=== PATIENT | female | born 1945 | race Asian ===

== ENCOUNTER → 2016-11-15 | Outpatient (CLI) | payer OTHER | LOC: FIMAGING 14:39 | DX: Z12.31 Encounter for screening mammogram for malignant neoplasm of breast (principal) | CPT/HCPCS: G0202 ==

== ENCOUNTER → 2017-02-23 | Outpatient (CLI) | payer OTHER | LOC: FIMAGING 12:14 | PROVIDERS: ATTEND Internal Medicine | DX: Z13.820 Encounter for screening for osteoporosis (principal); M85.80 Other specified disorders of bone density and structure, unspecified site; Z78.0 Asymptomatic menopausal state ==

== ENCOUNTER 2017-10-04 20:21 | Inpatient (IN) | payer OTHER ==
--- NOTE | 2017-10-04 21:55 | EDPHY ---
H & P Stated Complaint: Fell and hurt left hip Time Seen by Provider: 10/04/17 20:30 HPI/ROS: Chief complaint: Left hip injury History of present illness: This is a 71-year-old female who presents to the emergency department for evaluation of a left hip injury. Earlier today she tripped and fell onto her left hip. Since then she has had increasing pain. She cannot ambulate because of the pain. She denies associated signs or symptoms including no open wounds. No abnormal coolness or paresthesias in the leg. No other trauma reported. Review of systems: A 10 point review of systems was obtained and other than described above was negative - Personal History Current Tetanus/Diphtheria Vaccine: Yes Current Tetanus Diphtheria and Acellular Pertussis (TDAP): Yes - Medical/Surgical History Hx Asthma: No Hx Chronic Respiratory Disease: No Hx Diabetes: No Hx Cardiac Disease: No Hx Renal Disease: No Hx Cirrhosis: No Hx Alcoholism: No Hx HIV/AIDS: No Hx Splenectomy or Spleen Trauma: No Other PMH: left hand surgery - Social History Smoking Status: Never smoked - Physical Exam Exam: General Appearance: Alert, no distress. Eyes: Pupils equal and round no pallor or injection. ENT, Mouth: Mucous membranes moist. Respiratory: There are no retractions, lungs are clear to auscultation. Cardiovascular: Regular rate and rhythm. DP and PT pulses 2+. Gastrointestinal: Abdomen is soft and non tender, no masses, bowel sounds normal. Neurological: Alert and oriented x4. Strength and sensation intact and symmetrical. Skin: Warm and dry, no rashes. Musculoskeletal: Left leg is externally rotated. She does not want move the hip secondary to pain. Psychiatric: Patient is oriented X 3, there is no agitation. Constitutional: Initial Vital Signs Temperature (C) 36.6 C 10/04/17 20:26 Heart Rate 79 10/04/17 20:26 Respiratory Rate 16 10/04/17 20:26 Blood Pressure 134/76 H 10/04/17 20:26 O2 Sat (%) 93 10/04/17 20:26 O2 Delivery Mode Room Air Allergies/Adverse Reactions: iodine [Iodine] Allergy (Verified 10/04/17 20:29) Home Medications: Medication Instructions Recorded Lipitor 10/04/17 Melatonin 10/04/17 Medical Decision Making - Diagnostics Imaging Results: Imaging Impressions Hip X-Ray 10/04/17 20:56 Impression: Left subcapital hip fracture. Imaging: I viewed and interpreted images myself ED Course/Re-evaluation: Patient is discussed with my secondary supervising physician Dr. Marin Borges. Patient presents for a left hip injury. X-ray confirms a fracture. Leg is neurovascularly intact. By history and physical exam no evidence of other trauma. Patient will be admitted to the hospitalist service under the care of Dr. Hernandez. Orthopedics, Dr. Lundy will consult on this patient. The plan has been discussed with the patient who voiced understanding and agreement with it. Differential Diagnosis: Included but not limited to contusion, sprain or strain, bony fracture, joint dislocation Departure - Departure Disposition: [facility] Inpatient Acute Clinical Impression: Hip fracture Qualifiers: Encounter type: initial encounter Fracture type: closed Laterality: left Qualified Code(s): S72.002A - Fracture of unspecified part of neck of left femur , initial encounter for closed fracture Condition: Good
[2017-10-04] MEDS ORDERED: HYDROCODONE/APAP 5/325 TAB PO PRN (22:40)
[2017-10-04] MEDS ORDERED: ONDANSETRON 4 MG/2 ML VIAL IVP PRN (22:40)
[2017-10-04] MEDS ORDERED: HYDROmorphONE/DILAUDID 2 MG/ML INJ IVP PRN (22:40)
[2017-10-04] MEDS ORDERED: NS 1,000 ML IV SCH (22:45)
[2017-10-04 23:04] LABS: PLATELET COUNT 227 10^3/uL (150-400)
[2017-10-04 23:14] LABS: INR 1.02 (0.83-1.16); PROTIME(PATIENT) 13.6 SEC (12.0-15.0)
[2017-10-04] MEDS ORDERED: WARFARIN SODIUM 5 MG TAB PO ONE (23:20)
--- NOTE | 2017-10-04 23:28 | SOAPPROG ---
SOAP Progress Note Assessment/Plan: Assessment: Left hip subcapital fracture Plan: Patient and xrays were reviewed by Dr. Lundy and myself levon. A formal consult note was dictated. It was discussed with the patient and family that she will need surgery to fix her left hip fracture Surgery planned for tomorrow afternoon 10/05/17 after 3:00pm-4:00pm. Surgery will likely be a left hip hemiarthroplasty vs. total hip replacement All the risks, benefits and complications discussed with the patient and family NWB LLE, Bed rest Ice to left hip Pain medicine as needed. F/U on PT/INR results Patient will be started in Coumadin 5mg PO tonight for DVT prophylaxis prior to her operation tomorrow afternoon. Patient will be further seen and evaluated by Dr. Lundy in the morning. Subjective: 71 year old female who fell tonight landing on her left hip. She is unable to bear weight. Xrays done in the ER that show a left hip subcapital fracture. Patient states her hip is not to painful right now while laying in bed. Patient denies LOC or any other orthopedic injuries. Objective: Vital Signs Temp Pulse Resp BP Pulse Ox 36.6 C 79 16 134/76 H 93 10/04/17 20:26 10/04/17 20:26 10/04/17 20:26 10/04/17 20:26 10/04/17 20:26 Laboratory Results 10/04/17 22:45 10/04/17 22:45 PT 13.6 SEC (12.0-15.0) 10/04/17 22:45 INR 1.02 (0.83-1.16) 10/04/17 22:45 Physical exam of the LLE: leg is externally rotated. Pain with any movement. Patient is able to move all 5 toes. Normal sensation to light touch in the LLE. Distal pulse present in the LLE. Skin is warm, dry and intact, no rashes or abrasions noted. ICD10 Worksheet Patient Problems: Problems Problem Status Onset Hip fracture Acute
--- NOTE | 2017-10-04 23:43 | GCON ---
[f rep st] CONSULTATION ORTHOPEDIC CONSULTATION. CHIEF COMPLAINT: Left hip injury/pain. HISTORY OF PRESENT ILLNESS: The patient is a 71-year-old female, who tripped over her flower bin bonnie garcia and fell, landing on her left hip. She states initially the pain was not too bad, however, has been getting worse, which made her come to the ER. She can no longer ambulate because of the pain. She denies any loss of consciousness or any other orthopedic injuries. X-rays were taken in the ER t onight that shows a left subcapital hip fracture. No other trauma noted. We were consulted for an o rthopedic evaluation. PAST MEDICAL HISTORY: Hyperlipidemia. PAST SURGICAL HISTORY: Left hand operation and right finger operation. CURRENT MEDICATIONS: Lipitor and melatonin. ALLERGIES: Iodine. SOCIAL HISTORY: Patient is a non cigarette smoker. Does not drink alcohol or use recreational drugs . REVIEW OF SYSTEMS: A 10-point review was done. Negative for any other complaints, concerns, or hist ory except for what was noted in the HPI. FAMILY HISTORY: Noncontributory. PHYSICAL EXAMINATION: GENERAL: Pleasant, NAD. HEENT: NC/AT, EOMI, PERRLA. EARS/NARES: Patent wi thout discharge. Oropharynx is clear. NECK: Nontender to palpation, full range of motion. MUSCULO SKELETAL: Left Lower Extremity: The leg is externally rotated. She does have discomfort with any m ovement of the hip. She is able to move all 5 toes. Normal sensation to light touch in the left low er extremity. Distal pulses present left lower extremity. SKIN: Warm, dry, and intact without any rashes noted. PSYCHIATRIC: Alert and oriented x3. Appropriate mood and affect. RADIOGRAPHS: X-rays reviewed from the [facility] ER, and show a left hip subcapital fr acture. IMPRESSION: Left hip subcapital fracture. PLAN: Patient was seen, examined, and discussed with Dr. Lundy, who also reviewed the x-rays tonight . At this point, I had a long discussion with the patient and her family members. I did discuss isabelle t treatment would involve surgery. The patient does understand this. I did go through the possibili ty of having to do a left total hip arthroplasty versus a hemiarthroplasty. The risks, benefits, com plications were explained to the patient. The patient will be made nonweightbearing left lower extre mity until her operation. Ice the left hip, pain medicine as needed. We will get lab work for a PT/ INR, and she will be started on Coumadin 5 mg tonight for DVT prophylaxis prior to the total hip or h emiarthroplasty. Coumadin will be used postoperatively, per Dr. Lundy. The patient's surgery will b e done tomorrow afternoon, October 05, likely after 3 or 4 p.m. I will make her n.p.o. starting at 7 a .m. on October 05. All questions were answered to the patient and her family's satisfaction. Please call Orthopedics with any questions or concerns. /[id number]/MODL
[2017-10-05] MEDS ORDERED: MELATONIN 3 MG TAB PO SCH (01:00)
[2017-10-05] MEDS ORDERED: POLYETHYLENE GLYCOL 3350 17 GM PKT PO PRN (01:00)
[2017-10-05] MEDS ORDERED: LACTULOSE 20 GM/30 ML UDCUP PO PRN (01:00)
[2017-10-05] MEDS ORDERED: BISACODYL 10 MG SUPP PR PRN (01:00)
[2017-10-05] MEDS ORDERED: MAGNESIUM HYDROXIDE 30 ML UDCUP PO PRN (01:00)
--- NOTE | 2017-10-05 01:34 | PDGENHP ---
History and Physical - Chief Complaint Left hip pain, fall - History of Present Illness Source-patient provides history and appears reliable. Her EMR was reviewed and case discussed with ED provider. 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 Patient reports that she had a mechanical fall approximately 7:00 p.m. Where she tripped on P version over a flower pot. Patient subsequently had a significant amount of left hip pain but was able to ambulate with severe pain. She reports some on nausea initially after her fall but this is resolved. She denies any lightheadedness, shortness of breath, presyncope, palpitations prior to her fall. Patient currently denies any numbness or tingling in her left leg. She does report increased pain with any movement. Patient without a previous diagnosis of osteoporosis. History Information - Allergies/Home Medication List Allergies/Adverse Reactions: iodine [Iodine] Allergy (Verified 10/04/17 20:29) Home Medications: Lipitor 10/04/17 [Last Taken Unknown] Melatonin 10/04/17 [Last Taken Unknown] I have personally reviewed and updated: family history, medical history, social history, surgical history - Past Medical History Additional medical history: HLD, diet-controlled pre-diabetes - Surgical History Additional surgical history: Left thumb surgery, tonsillectomy adenoidectomy, left breast I&D in her 20s for possible mastitis - Family History Additional family history: Father with history of chest cancer, mother-CVA, brother-mi/CAD - Social History Smoking Status: Never smoked Alcohol Use: None Drug Use: None Additional social history: Patient is lives with her . 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 Core-full Review of Systems Review of Systems: ROS: 10pt was reviewed & negative except for what was stated in HPI & below Muscolosketal: Reports: joint pain (Left hip) Skin: Reports: rash (Dry skin) Physical Exam Physical Exam: Selected Entries 10/04/17 20:26 Blood Pressure Automatic Method Heart Rate 79 Respiratory 16 Rate O2 Sat (%) 93 Temperature (C) 36.6 C Blood Pressure 134/76 H Mean Arterial 95 Pressure (MAP) O2 Delivery Room Air Mode Temperature Oral Source Temp Pulse Resp BP Pulse Ox 36.9 C 78 18 130/77 H 97 10/05/17 00:02 10/05/17 00:02 10/05/17 00:02 10/05/17 00:02 10/05/17 00:02 Constitutional: no apparent distress, appears nourished, uncomfortable (With movement), other ( at bedside) Eyes: PERRL, anicteric sclera, EOMI (Grossly intact), No scleral injection Ears, Nose, Mouth, Throat: moist mucous membranes, No poor dentition Cardiovascular: regular rate and rhythym, no murmur, rub, or gallop, pulses symmetric bilaterally, No edema Peripheral Pulses: 2+: dorsalis-pedis (R), dorsalis-pedis (L) Respiratory: no respiratory distress, no rales or rhonchi, clear to auscultation , No reduced air movement Gastrointestinal: normoactive bowel sounds, soft, non-tender abdomen, no palpable masses, No distension Genitourinary: no bladder tenderness, No osullivan in urethra Skin: warm, normal color, no rashes or abrasions, No mottled Musculoskeletal: pain with ROM, other (Left leg exam limited secondary to fracture and pain, is slightly elevated cradle by pillows but straighten. Remainder of extremities strength intact) Neurologic: AAOx3, sensation intact bilaterally, CN II-XII Intact (Grossly nonfocal), No numbness, No facial droop Psychiatric: interacting appropriately, not encephalopathic, thought process linear, anxious (Patient with multiple questions but is appropriately anxious regarding her anticipated surgery.), No poor insight, No poor judgement, No poor memory Lab Data & Imaging Review 10/04/17 22:45 10/04/17 22:45 WBC 10.79 10^3/uL (3.80-9.50) H 10/04/17 22:45 RBC 4.63 10^6/uL (4.18-5.33) 10/04/17 22:45 Hgb 15.0 g/dL (12.6-16.3) 10/04/17 22:45 Hct 42.8 % (38.0-47.0) 10/04/17 22:45 MCV 92.4 fL (81.5-99.8) 10/04/17 22:45 MCH 32.4 pg (27.9-34.1) 10/04/17 22:45 MCHC 35.0 g/dL (32.4-36.7) 10/04/17 22:45 RDW 12.3 % (11.5-15.2) 10/04/17 22:45 Plt Count 227 10^3/uL (150-400) 10/04/17 22:45 MPV 9.1 fL (8.7-11.7) 10/04/17 22:45 Neut % (Auto) 87.1 % (39.3-74.2) H 10/04/17 22:45 Lymph % (Auto) 8.7 % (15.0-45.0) L 10/04/17 22:45 [place] % (Auto) 3.2 % (4.5-13.0) L 10/04/17 22:45 Eos % (Auto) 0.3 % (0.6-7.6) L 10/04/17 22:45 Baso % (Auto) 0.1 % (0.3-1.7) L 10/04/17 22:45 Nucleat RBC Rel Count 0.0 % (0.0-0.2) 10/04/17 22:45 Absolute Neuts (auto) 9.40 10^3/uL (1.70-6.50) H 10/04/17 22:45 Absolute Lymphs (auto) 0.94 10^3/uL (1.00-3.00) L 10/04/17 22:45 Absolute Monos (auto) 0.35 10^3/uL (0.30-0.80) 10/04/17 22:45 Absolute Eos (auto) 0.03 10^3/uL (0.03-0.40) 10/04/17 22:45 Absolute Basos (auto) 0.01 10^3/uL (0.02-0.10) L 10/04/17 22:45 Absolute Nucleated RBC 0.00 10^3/uL (0-0.01) 10/04/17 22:45 Immature Gran % 0.6 % (0.0-1.1) 10/04/17 22:45 Immature Gran # 0.06 10^3/uL (0.00-0.10) 03/22/18 22:45 PT 13.6 SEC (12.0-15.0) 10/04/17 22:45 INR 1.02 (0.83-1.16) 10/04/17 22:45 APTT 33.4 SEC (23.0-38.0) 10/04/17 22:45 Sodium 139 mEq/L (135-145) 10/04/17 22:45 Potassium 4.1 mEq/L (3.5-5.2) 10/04/17 22:45 Chloride 103 mEq/L (97-110) 10/04/17 22:45 Carbon Dioxide 25 mEq/l (22-31) 10/04/17 22:45 Anion Gap 11 mEq/L (8-16) 10/04/17 22:45 BUN 18 mg/dL (7-23) 10/04/17 22:45 Creatinine 0.6 mg/dL (0.6-1.0) 10/04/17 22:45 Estimated GFR > 60 10/04/17 22:45 Glucose 126 mg/dL (70-100) H 10/04/17 22:45 Calcium 9.0 mg/dL (8.5-10.4) 10/04/17 22:45 Imaging Review: Left Hip Technique: AP pelvis and frog-leg left hip. Clinical Indications: Pain, fall tonight Findings: There is an acute left subcapital hip fracture. There is mild displacement. The pelvic ring is intact. The SI joints pubic symphysis and right hip are normally aligned. There is a calcified uterine fibroid in the left hemipelvis. There are left hip injection granulomas. Impression: Left subcapital hip fracture. Visualized and Interpreted imaging results: Yes Assessment & Plan Assessment: Left hip fracture - subcapital fracture. Orthopedics service has evaluated the patient in the emergency department and will plan for patient to go to the OR tomorrow afternoon approximately 3:00 p.m.. Anticipate possible hemiarthroplasty versus total on hip arthroplasty. Patient will be on bed rest. P.r.n. Osullivan if patient is unable to utilize a bedpan due to severe pain. Patient will be NPO after 7:00 a.m. As per Orthopedic request. acute pain 2/2 trauma - Tylenol, Dexter, Dilaudid will be available p.r.n.. Patient has requested to try to avoid narcotics as she reports she is sensitive but no history of allergies. HLD - resume statin postoperatively holding at this time. Patient reassures okay to miss a dose Insomnia-patient is requesting that she take her melatonin as well as herbal supplementation. Advised that we can continue with melatonin but will hold her herbal supplements preoperatively due to unknown contents and potential increased risk for bleeding preoperatively. Pre diabetes-patient blood sugar minimally elevated in this is nonfasting lab. Will plan to monitor with a.m. Labs consider addition of Accu-Cheks and low- dose sliding scale if her blood sugars start to trend up in setting of her acute fracture otherwise at this time will hold off. Constipation-bowel regimen has been ordered. Moderate amount of stool is noted on patient's pelvic x-ray but patient without any complaints of discomfort at this time. FEN - IV fluids overnight while patient will be NPO. Electrolytes will be monitored and replaced if needed. PPX-SCDs to the right leg if tolerated otherwise holding anticoagulation preoperatively. Cor status-full Disposition-patient has been admitted to inpatient status in setting of acute left hip fracture. Anticipate greater than 2 midnight stay.
[2017-10-05] MEDS ORDERED: MELATONIN 2 MG PO SCH (01:43)
[2017-10-05] MEDS ORDERED: WARFARIN SODIUM 5 MG TAB PO ONE ×2 (02:45→20:30)
[2017-10-05] MEDS: MELATONIN 3 MG TAB PO SCH ×2 (03:07→20:42)
[2017-10-05] MEDS: ACETAMINOPHEN 325 MG TAB PO PRN (03:11)
--- NOTE | 2017-10-05 09:29 | PDMN ---
Medical Necessity Medical necessity: est los>2mn for acute L hip fx r/t mechanical fall w/acute pain with ambulation; surgery scheduled for 10/05/17, possible hemiarthroplasty vs total arthroplasty (IP surgeries per [facility]); comorbid HLD, pre diabetes; per order and H&P 10/04/17
[2017-10-05] MEDS: SENNOSIDES/DOCUSATE SODIUM TAB PO SCH ×2 (09:44→20:43)
--- NOTE | 2017-10-05 10:07 | ASMTCMCOM ---
CM Note CM Note Notes: Reviewed patient's chart. Patient admitted s/p fall with Left Hip Fx. Patient lives at home with . She is scheduled for surgery this afternoon. Will await therapy evals post surgery. Current D/C Plan: To Be Determined at this time. Case Management will follow-up post surgery. Date Signed: 10/05/2017 10:05 AM Electronically Signed By:Kyung Arellano RN
[2017-10-05] MEDS ORDERED: TRANEXAMIC ACID 1,000 MG in NS (SYRINGE) 50 ML IV ONE (13:13)
[2017-10-05] MEDS ORDERED: ceFAZolin 2 GM/SWFI 2 GM/20 ML SYR IVP ONE (13:13)
[2017-10-05] MEDS ORDERED: ceFAZolin 1 GM/5 ML SYR ONE (15:11)
[2017-10-05] MEDS ORDERED: ceFAZolin 2 GM/SWFI 20 ML SYR IVP ONE (15:31)
[2017-10-05] MEDS ORDERED: LR 1,000 ML IV ONE (15:44)
--- NOTE | 2017-10-05 16:12 | PDANEPAE ---
ANE History of Present Illness LEFT ANANDA ANE Past Medical History - Cardiovascular History Hx Hypertension: No Hx Arrhythmias: No Hx Chest Pain: No Hx Coronary Artery / Peripheral Vascular Disease: No Hx CHF / Valvular Disease: No Hx Palpitations: No Cardiovascular History Comment: negative treadmill test about 2 years ago - Pulmonary History Hx COPD: No Hx Asthma/Reactive Airway Disease: No Hx Oxygen in Use at Home: No Hx Sleep Apnea: No Sleep Apnea Screening Result - Last Documented: Negative Pulmonary History Comment: Bronchitis, worst in September - Endocrine History Hx Diabetes: No Hypothyroid: No Hyperthyroid: No Obesity: no Endocrine History Comment: Pre-DM - Renal History Hx Renal Disorders: No - Liver History Hx Hepatic Disorders: No - Neurological & Psychiatric Hx Hx Neurological and Psychiatric Disorders: No - Cancer History Hx Cancer: No - GI History GERD: no Hx Gastrointestinal Disorders: No - Chronic Pain History Chronic Pain: Yes (pain in R ankle post strain) - Surgical History Prior Surgeries: tonsillectomy, breast surgery ANE Review of Systems Review of Systems: - Exercise capacity METS (RN): 4 METS ANE Patient History - Allergies Allergies/Adverse Reactions: iodine [Iodine] Allergy (Verified 10/04/17 20:29) - Home Medications Home Medications: Atorvastatin Calcium [Lipitor 40 mg (*)] 40 mg PO HS 10/04/17 [Last Taken ] Melatonin/Pyridoxine HCl (B6) [Melatonin 1 mg Tablet] 2 tab PO HS 10/04/17 [ Last Taken 10/03/17] Aspirin [Aspirin 81mg (*)] 81 mg PO HS 10/05/17 [Last Taken 10/03/17] Herbals/Supplements -Info Only 1 ea PO DAILY 10/05/17 [Last Taken Unknown] - NPO status NPO Since - Liquids (Date): 10/05/17 NPO Since - Liquids (Time): 07:00 NPO Since - Solids (Date): 10/05/17 NPO Since - Solids (Time): 00:01 - Anes Hx Anes Hx: no prior problems - Smoking Hx Smoking Status: Never smoked Marijuana use: No - Alcohol Use Alcohol Use: Other (rare) - Family Anes Hx Family Anes Hx: neg - N/A ANE Labs/Vital Signs - Labs Result Diagrams: 10/04/17 22:45 10/04/17 22:45 - Vital Signs Blood Pressure: 112/92 Heart Rate: 77 Respiratory Rate: 16 O2 Sat (%): 92 Height: 152.4 cm Weight: 62.1 kg ANE Physical Exam - Airway Neck exam: decreased ROM (c/o neck pain with R lateral rotation) Mallampati Score: Class 1 Mouth exam: normal dental/mouth exam (Upper front crowns) - Pulmonary Pulmonary: clear to auscultation - Cardiovascular Cardiovascular: regular rate and rhythym - ASA Status ASA Status: III ANE Anesthesia Plan Anesthesia Plan: general endotracheal anesthesia (SAB vs GA procedures/benefits discussed with patient and her ; questions answered. Pt. prefers GA.)
[2017-10-05] MEDS ORDERED: PROPOFOL 200 MG/20 ML VIAL ONE ×3 (16:27→18:20)
[2017-10-05] MEDS ORDERED: ROCURONIUM 50 MG/5 ML VIAL ONE (16:27)
[2017-10-05] MEDS ORDERED: fentaNYL 100 MCG/2 ML INJ ONE ×2 (16:27→19:34)
[2017-10-05] MEDS ORDERED: DEXAMETHASONE 4 MG/ML VIAL ONE (16:27)
[2017-10-05] MEDS ORDERED: BUPIVACAINE 0.5% 30 ML SDV ONE (16:34)
[2017-10-05] MEDS ORDERED: ONDANSETRON 4 MG/2 ML VIAL ONE (18:43)
[2017-10-05] MEDS ORDERED: GLYCOPYRROLATE 0.2 MG/1 ML VIAL ONE (18:48)
[2017-10-05] MEDS ORDERED: NEOSTIGMINE METHYLSULFATE 3 MG/3 ML SYR ONE (18:48)
[2017-10-05] MEDS ORDERED: HYDROmorphONE/DILAUDID 2 MG/ML INJ IVP PRN (19:08)
[2017-10-05] MEDS ORDERED: fentaNYL 100 MCG/2 ML INJ IVP PRN (19:08)
[2017-10-05] MEDS ORDERED: NALOXONE HCL 0.4 MG/ML INJ IVP PRN (19:08)
[2017-10-05] MEDS ORDERED: METOCLOPRAMIDE 10 MG/2 ML VIAL IVP PRN (19:16)
[2017-10-05] MEDS ORDERED: oxyCODONE IR 5 MG TAB PO PRN (19:16)
[2017-10-05] MEDS ORDERED: diphenhydrAMINE 25 MG CAP PO PRN (19:16)
[2017-10-05] MEDS ORDERED: DIPHENOXYLATE/ATROPINE LOMOTIL 1 TAB PO PRN (19:16)
[2017-10-05] MEDS ORDERED: PROMETHAZINE HCL 25 MG/ML INJ IVP PRN (19:16)
[2017-10-05] MEDS ORDERED: CYCLOBENZAPRINE 10 MG TAB PO PRN (19:16)
--- NOTE | 2017-10-05 19:43 | POSTANESTH ---
Post Anesthetic Evaluation Cardiovascular Status: Normal, Stable Respiratory Status: Normal, Stable Level of Consciousness/Mental Status: Can Participate in Eval Pain Control: Adequate, Prn Tx Ordered Nausea/Vomiting Control: Adequate, Prn Tx Ordered Complications Possibly Related to Anesthesia: None Noted
--- NOTE | 2017-10-05 20:12 | GOP ---
[f rep st] OPERATIVE REPORT DATE OF OPERATION: 10/04/2017 SURGEON: Trey Lundy MD TECHNICAL PUBLICATIONS MANAGER: Carmen Menchaca PA-C. ANESTHESIA: General. PREOPERATIVE DIAGNOSIS: Left Garden 4 femoral neck fracture. POSTOPERATIVE DIAGNOSIS: Left Garden 4 femoral neck fracture. PROCEDURE PERFORMED: Left total hip arthroplasty for a left Garden 4 femoral neck fracture. FINDINGS: DESCRIPTION OF PROCEDURE: Patient was taken to the operating room, administered general anesthesia, placed in the right lateral decubitus position, had her left hip and lower extremity prepped and drap ed in normal sterile fashion. Posterolateral incision was made through dermal and subcutaneous tissu es. Sharp dissection performed down to the level of the IT band. Small bleeders were cauterized. I T band was split distally, extended proximally over the greater trochanter into the gluteal fascia. Retractors were put in position. The external rotators were brought under tension. The piriformis w as isolated. This was taken down along with the posterior hip capsule using a cautery. The femoral head fracture segment was noted. There was significant neck comminution. The comminuted fragments w ere removed. The neck cut was then freshened up with an oscillating saw. The head was then levered out using a tenaculum clamp and a Dial elevator. The acetabulum was inspected. A small amount of we ar was noted. The labral tissue was excised. The tissue was excised. We subsequently be susan reaming with a size 44 and extended up to a size 47. We elected to go with a 48 mm titanium reji spherical cluster hole shell. Two screws were placed superiorly, 135 mm and 130 mm. Both screws had excellent purchase. We then placed an MDM liner in position and impacted that. This was 36 mm C in ner diameter. The femoral neck was then brought into position. Box osteotome was used to remove bon e from the greater trochanter. The starting tapered reamer was placed manually down into the canal. Reaming started with a size 5 and extended up to a size 8. Broaching began with a size 5 and extend ed up to a size 8. An 8 secure fit seemed to fit her appropriately. The trial head and liner were p ut on the broach. The hip was reduced with the trials in place. Intraoperative films were taken. W e elected to increase our offset. The 127 degree trial offset was positioned. We then reapplied the trial heads and relocated. This appeared to fit her more appropriately. Leg lengths were felt to b e equal. Thorough lavage performed with normal saline. The trial implants were removed. The real f emoral stem was impacted into position. The real 22 mm low friction ion L-fit head was impacted into position. The real MDM X3 insert for the MDM liner was impacted into position. Implants utilized w ere titanium hemispherical cluster hole shell, 135 mm length by 6.5 screw, 130 mm length by 6.5 screw , an MDM liner, inner diameter 36 mm C, MDM X3 insert for MDM liner, 22 mm outer diameter 36, size 36 C, C taper L-fit low friction ion treatment head size 22 mm +0 offset, a secure fit max 127 degree n tariq angle hip stem size 8, 30 mm neck length C taper. All implants from [employer]. The incision was t horoughly lavaged. The external rotators were then repaired back through drill holes in the greater trochanter with a #1 Ethibond suture. The piriformis was repaired through drill holes in the greater trochanter with #1 piriform suture. The iliotibial band and gluteal fascia were reapproximated with a #1 Vicryl suture in an interrupted [id number] fashion. The subcutaneous tissues were closed with 2-0 Vicryl suture followed by closure of the dermis with jose angel. A sterile compression dressin g applied followed by abduction pillow, pneumatic compression stockings, and AUDREY hose. The patient t olerated procedure well, was transferred back to recovery in stable condition. No operative complica tions. COMPLICATIONS: None. /[id number]/MODL
[2017-10-05] MEDS ORDERED: oxyCODONE IR 5 MG TAB ONE (20:13)
[2017-10-05] MEDS: FAMOTIDINE 20 MG TAB PO SCH (20:43)
--- NOTE | 2017-10-05 21:32 | POSTOPPROG ---
Post Op Note Date of Operation: 10/05/17 Surgeon: Trey Lundy Perfume And Toilet Water Maker: Jennifer Kaur PA-C Anesthesia: GET(General Endotracheal) Pre-op Diagnosis: Left Hip Subcapital fracture Post-op Diagnosis: Left Hip Subcapital fracture Indication: displaced hip fracture Procedure: Left total hip arthroplasty Findings: see dictated op note Inf/Abcess present in the surg proc area at time of surgery?: No EBL: 100-500 Complications: none Specimen(s): none
[2017-10-05] MEDS ORDERED: ceFAZolin 2 GM/DEXTROSE 100 ML IV SCH (22:00)
[2017-10-06] MEDS: ceFAZolin 2 GM/SWFI 2 GM/20 ML SYR IVP SCH ×2 (00:59→08:08)
[2017-10-06] MEDS: ACETAMINOPHEN 325 MG TAB PO PRN ×2 (02:14→17:42)
[2017-10-06 05:26] LABS: INR 1.59 (0.83-1.16); PROTIME(PATIENT) 19.1 SEC (12.0-15.0)
[2017-10-06] MEDS: FAMOTIDINE 20 MG TAB PO SCH ×2 (08:08→21:23)
[2017-10-06] MEDS: SENNOSIDES/DOCUSATE SODIUM TAB PO SCH ×2 (08:08→21:22)
--- NOTE | 2017-10-06 09:10 | HOSPPROG ---
Hospitalist Progress Note Assessment/Plan: Patient is a 71-year-old female with a past medical history of hyperlipidemia, pre diabetes who presented the emergency room with complaints of left hip pain and difficulty walking. She had a mechanical fall and developed left hip pain but was able to ambulate. Today is my 1st encounter with the patient. Chart reviewed. * left subcapital hip fracture -s/p left total hip arthroplasty * acute pain due to this *anemia in the post op setting -will follow * gait instability -PT and OT working w her * hyperlipidemia * insomnia -Melatonin * pre diabetes * constipation -add bowel protocol * calcified uterine fibroid in the left hemipelvis noted on imaging *dvt prophylaxis: LMWH *Plan: reviewed w Ms Mejía she will likely need a SNF for rehab. I believe some info gets confused when talking w her. If we can use a Belgian cylinder machine operator pulp drier when possible this will help her understand. 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 Subjective: Mrs Mejía has no pain while in bed. Says her hip hurts when getting up. Objective: Vital Signs Temp Pulse Resp BP Pulse Ox 36.7 C 78 16 100/65 94 10/06/17 07:27 10/06/17 07:27 10/06/17 07:27 10/06/17 07:27 10/06/17 07:27 Laboratory Results 10/06/17 04:18 10/04/17 22:45 10/05/17 10/06/17 10/07/17 05:59 05:59 05:59 Intake Total 3080 Output Total 400 1245 Balance -400 1835 PT 19.1 SEC (12.0-15.0) H 10/06/17 04:18 INR 1.59 (0.83-1.16) H 10/06/17 04:18 - Physical Exam Constitutional: uncomfortable Eyes: PERRL Ears, Nose, Mouth, Throat: hearing normal Cardiovascular: regular rate and rhythym Respiratory: no respiratory distress Skin: warm, other (left hip with swelling, has a brigitte bulb drain w minimal serous bloody drainage.) Musculoskeletal: generalized weakness Neurologic: AAOx3 Psychiatric: interacting appropriately ICD10 Worksheet Patient Problems: Problems Problem Status Onset Hip fracture Acute
--- NOTE | 2017-10-06 11:49 | SOAPPROG ---
SOAP Progress Note Assessment/Plan: Assessment: Left hip subcapital fracture: POD#1 from a left total hip arthroplasty Plan: Drain will remain in place until tomorrow Daily dressing changes WBAT LLE with the use of a walker PT/OT TEDs/SCD's Ice to left hip Pain medicine as needed Warfarin for DVT prophylaxis prior to her operation tomorrow afternoon Continue to monitor H&H: currently 9.8/28.9 Ortho Stable Subjective: Patient is one day status post left total hip arthroplasty. She states that she has pain when moving but no pain while she is laying in bed. Objective: Vital Signs Temp Pulse Resp BP Pulse Ox 36.9 C 91 16 132/91 H 95 10/06/17 11:44 10/06/17 11:44 10/06/17 11:44 10/06/17 11:44 10/06/17 11:44 Laboratory Results 10/06/17 04:18 10/04/17 22:45 10/05/17 10/06/17 10/07/17 05:59 05:59 05:59 Intake Total 3080 Output Total 400 1245 100 Balance -400 1835 -100 PT 19.1 SEC (12.0-15.0) H 10/06/17 04:18 INR 1.59 (0.83-1.16) H 10/06/17 04:18 Physical exam of the left hip: dressing was saturated so it was changed today. New dry dressing applied. Incision is healing well, no active drainage or erythema. Ballinger are in place. Pt is able to move all 5 toes. Normal sensation to light touch in the LLE. Distal pulse present in the LLE. Drain will remain in place. ICD10 Worksheet Patient Problems: Problems Problem Status Onset Hip fracture Acute
--- NOTE | 2017-10-06 14:23 | ASMTCMCOM ---
CM Note CM Note Notes: PT/OT recommending SNF. Spoke with pt who is requesting [facility] as she lives near there and it will be the easiest for her to visit her. Referral and PASRR sent. Date Signed: 10/06/2017 02:23 PM Electronically Signed By:JOHANNA Goldman
[2017-10-06] MEDS ORDERED: WARFARIN SODIUM 2.5 MG TAB PO SCH (16:00)
[2017-10-06] MEDS: ATORVASTATIN CALCIUM 40 MG TAB PO SCH (21:00)
[2017-10-06] MEDS: MELATONIN 3 MG TAB PO SCH (21:23)
[2017-10-07 05:00] LABS: INR 2.17 (0.83-1.16); PROTIME(PATIENT) 24.2 SEC (12.0-15.0)
[2017-10-07] MEDS: ACETAMINOPHEN 325 MG TAB PO PRN ×2 (11:43→20:45)
[2017-10-07] MEDS: SENNOSIDES/DOCUSATE SODIUM TAB PO SCH ×2 (11:43→20:25)
[2017-10-07] MEDS: FAMOTIDINE 20 MG TAB PO SCH ×2 (11:44→21:01)
--- NOTE | 2017-10-07 11:50 | SOAPPROG ---
SOAP Progress Note Assessment/Plan: Assessment: Left hip subcapital fracture: POD#2 from a left total hip arthroplasty Plan: Drain: was pulled today Daily dressing changes WBAT LLE with the use of a walker PT/OT TEDs/SCD's Ice to left hip Pain medicine as needed Warfarin for DVT prophylaxis daily Continue to monitor H&H: currently dropped to 8.6/25.3 Ortho Stable Subjective: Patient is POD#2 from a left total hip arthroplasty. Objective: Vital Signs Temp Pulse Resp BP Pulse Ox 36.9 C 80 16 104/60 95 10/07/17 08:00 10/07/17 08:00 10/07/17 08:00 10/07/17 08:00 10/07/17 08:00 Microbiology 10/05/17 09:45 MRSA Culture - Final Nose - Swab Laboratory Results 10/07/17 04:18 10/04/17 22:45 10/06/17 10/07/17 10/08/17 05:59 05:59 05:59 Intake Total 3080 1280 Output Total 1245 920 Balance 1835 360 PT 24.2 SEC (12.0-15.0) H 10/07/17 04:18 INR 2.17 (0.83-1.16) H 10/07/17 04:18 Physical exam of the left hip: dressing c/d/I. Normal sensation to light touch in the LLE. Distal pulse present in the LLE. NVI. ICD10 Worksheet Patient Problems: Problems Problem Status Onset Hip fracture Acute
--- NOTE | 2017-10-07 12:20 | HOSPPROG ---
Hospitalist Progress Note Assessment/Plan: Patient is a 71-year-old female with a past medical history of hyperlipidemia, pre diabetes who presented the emergency room with complaints of left hip pain and difficulty walking. She had a mechanical fall and developed left hip pain but was able to ambulate. * left subcapital hip fracture -s/p left total hip arthroplasty,POD #2 -drain in place till tomorrow -WBAT w use of walker * acute pain due to this -needs to be premedicated prior to getting oob *anemia in the post op setting -will follow -hgb 8.6 * gait instability -PT and OT working w her * hyperlipidemia * insomnia -Melatonin * pre diabetes * constipation -add bowel protocol * calcified uterine fibroid in the left hemipelvis noted on imaging *dvt prophylaxis: on Coumadin, INR is 2.17 *Plan: recheck labs in a.m., patient is agreeable to go to SNF Subjective: Mrs Mejía says her hip is very painful w getting oob. She is concerned about lab numbers. Objective: Vital Signs Temp Pulse Resp BP Pulse Ox 36.9 C 80 16 104/60 95 10/07/17 08:00 10/07/17 08:00 10/07/17 08:00 10/07/17 08:00 10/07/17 08:00 Microbiology 10/05/17 09:45 MRSA Culture - Final Nose - Swab Laboratory Results 10/07/17 04:18 10/04/17 22:45 10/06/17 10/07/17 10/08/17 05:59 05:59 05:59 Intake Total 3080 1280 Output Total 1245 920 Balance 1835 360 PT 24.2 SEC (12.0-15.0) H 10/07/17 04:18 INR 2.17 (0.83-1.16) H 10/07/17 04:18 - Physical Exam Constitutional: uncomfortable, No not in pain Eyes: PERRL Ears, Nose, Mouth, Throat: hearing normal Cardiovascular: regular rate and rhythym Skin: warm, other (left hip with drain, has swelling) Musculoskeletal: generalized weakness Neurologic: AAOx3 Psychiatric: interacting appropriately ICD10 Worksheet Patient Problems: Problems Problem Status Onset Hip fracture Acute
[2017-10-07] MEDS ORDERED: WARFARIN SODIUM 2 MG TAB PO SCH (16:00)
[2017-10-07] MEDS: ATORVASTATIN CALCIUM 40 MG TAB PO SCH (20:25)
[2017-10-07] MEDS: MELATONIN 3 MG TAB PO SCH (20:26)
[2017-10-08 05:15] LABS: INR 1.89 (0.83-1.16); PROTIME(PATIENT) 21.8 SEC (12.0-15.0)
--- NOTE | 2017-10-08 08:38 | HOSPPROG ---
Hospitalist Progress Note Assessment/Plan: Patient is a 71-year-old female with a past medical history of hyperlipidemia, pre diabetes who presented the emergency room with complaints of left hip pain and difficulty walking. She had a mechanical fall and developed left hip pain but was able to ambulate. * left subcapital hip fracture -s/p left total hip arthroplasty,POD #3 -drain out -WBAT w use of walker * acute pain due to this -needs to be premedicated prior to getting oob *anemia in the post op setting -will follow -hgb 8.3 * gait instability -PT and OT working w her * hyperlipidemia * insomnia -Melatonin * pre diabetes * constipation -add bowel protocol * calcified uterine fibroid in the left hemipelvis noted on imaging *dvt prophylaxis: on Coumadin, INR is 1.89 *Plan: call into orthopedics to see how long for dvt prophylaxis; will dc patient to [facility]. Subjective: Mrs Mejía says she didn't get enough sleep. Her hip pain is well managed while in bed. Objective: Vital Signs Temp Pulse Resp BP Pulse Ox 37.2 C 74 14 114/68 93 10/08/17 00:00 10/08/17 00:00 10/08/17 00:00 10/08/17 00:00 10/08/17 00:00 Microbiology 10/05/17 09:45 MRSA Culture - Final Nose - Swab Laboratory Results 10/08/17 04:12 10/04/17 22:45 10/07/17 10/08/17 10/09/17 05:59 05:59 05:59 Intake Total 1280 250 Output Total 920 155 Balance 360 95 PT 21.8 SEC (12.0-15.0) H 10/08/17 04:20 INR 1.89 (0.83-1.16) H 10/08/17 04:20 - Physical Exam Constitutional: no apparent distress, appears nourished Eyes: PERRL Ears, Nose, Mouth, Throat: hearing normal Cardiovascular: regular rate and rhythym Respiratory: no respiratory distress Skin: warm, other ( left hip with swelling, dressing dry) Musculoskeletal: generalized weakness Neurologic: AAOx3 Psychiatric: interacting appropriately ICD10 Worksheet Patient Problems: Problems Problem Status Onset Hip fracture Acute chronic disease mgtm/transitonal care Acute
[2017-10-08 08:40] VITALS: RESP 16
--- NOTE | 2017-10-08 08:50 | SOAPPROG ---
SOAP Progress Note Assessment/Plan: Assessment: Left hip subcapital fracture: POD#3 from a left total hip arthroplasty Plan: Daily dressing changes WBAT LLE with the use of a walker PT/OT TEDs/SCD's Ice to left hip Pain medicine as needed Warfarin for DVT prophylaxis daily Continue to monitor H&H Ortho Stable 10/08/17 08:58 Subjective: Patient is 3 days status post left total hip arthroplasty. She states she has pain when she is up & walking. She is not using much medicine for pain. Objective: Vital Signs Temp Pulse Resp BP Pulse Ox 37.4 C 77 16 100/64 87 L 10/08/17 08:00 10/08/17 08:00 10/08/17 08:00 10/08/17 08:00 10/08/17 08:00 Microbiology 10/05/17 09:45 MRSA Culture - Final Nose - Swab Laboratory Results 10/08/17 04:12 10/04/17 22:45 10/07/17 10/08/17 10/09/17 05:59 05:59 05:59 Intake Total 1280 250 Output Total 920 155 Balance 360 95 PT 21.8 SEC (12.0-15.0) H 10/08/17 04:20 INR 1.89 (0.83-1.16) H 10/08/17 04:20 Physical exam of the left hip: dressing changed today. Incision is healing well , no erythema no active drainage. Robbin are in place. Normal sensation to light touch in the LLE. Distal pulse present in the LLE. ICD10 Worksheet Patient Problems: Problems Problem Status Onset Hip fracture Acute chronic disease mg/transitonal care Acute
[2017-10-08] MEDS: SENNOSIDES/DOCUSATE SODIUM TAB PO SCH (09:30)
[2017-10-08] MEDS: ACETAMINOPHEN 325 MG TAB PO PRN (09:30)
[2017-10-08] MEDS: FAMOTIDINE 20 MG TAB PO SCH (09:30)
--- NOTE | 2017-10-08 10:42 | PDIAF ---
- Diagnosis Diagnosis: left subcapital hip fx s/p left total hip athroplasty, anemia Code Status: Full Code - Medication Management Discharge Medications: Medications to Continue on Transfer Atorvastatin Calcium [Lipitor 40 mg (*)] 40 mg PO HS 10/04/17 [Last Taken ] Acetaminophen [Tylenol 325mg (*)] 650 mg PO Q4HRS PRN tab 10/08/17 [Last Taken Unknown] Hydrocodone/APAP 5/325 [[place] 5/325 (*)] 1 - 2 tab PO Q4HRS PRN tab 10/08/17 [ Last Taken Unknown] Melatonin [Melatonin 3 MG (*)] 2 mg PO HS tab 10/08/17 [Last Taken Unknown] Polyethylene Glycol 3350 [Miralax 17 gm (*)] 17 gm PO DAILY PRN pkt 10/08/17 [ Last Taken Unknown] Sennosides/Docusate Sodium [Senokot-S] 1 - 2 tab PO BID tab 10/08/17 [Last Taken Unknown] Warfarin Sodium 2 mg PO DAILY #27 tablet 10/08/17 [Last Taken Unknown] oxyCODONE IR [Oxycodone Ir (*)] 5 - 10 mg PO Q3HRS PRN tab 10/08/17 [Last Taken Unknown] Discharge Medications: Refer to the Discharge Home Medication list for PRN reason. - Orders Services needed: Physical Therapy, Occupational Therapy Sutures/Robbin Site: left hip/ Dr Lundy to remove in 10 days, make an appt Activity/Weight Bearing Restrictions: Weight bearing as tolerated left lower extremity with a walker. AUDREY hose should be worn for 2 weeks post op. DVT prophylaxis: Warfarin daily for 4 weeks post op. PT/INR blood draws twice a week. Every Sunday and . Physical therapy left hip: Range of motion and strengthening. Posterior hip precautions: must use the abduction pillow while in bed for 6 weeks post op. Pain medicine as needed. Ice to left hip 20 minutes 3-4 times per day. Follow up with Dr. Lundy in 10-14 days post op. Please call our office to schedule the appointment. Please call the office with any questions or concerns. Additional: aspirin 81 mg has been placed on hold while the patient is on Warfarin (coumadin) - Labs/Radiology HCT/HGB Date: 10/09/17 (q 3 days to assure stability) PT/INR Date: 10/09/17 (daily till stable, goal INR of 2-2.5) - Follow Up Care Current Providers and Referrals: Trace Back MD [Primary Care Provider] - As per Instructions Trey Lundy MD [Medical Doctor] - (Follow up with Dr. Lundy in 10-14 days post op. Please call our office with any questions or concerns.)
--- NOTE | 2017-10-08 11:18 | GDS ---
[f rep st] DISCHARGE SUMMARY DISCHARGE DIAGNOSES: 1. Left subcapital hip fracture, status post left total hip arthroplasty. 2. Acute pain due to this. 3. Anemia. 4. Gait instability. 5. Hyperlipidemia. 6. Insomnia. 7. Prediabetes. 8. Constipation. 9. Calcified uterine fibroid. This is on left hemipelvis on imaging. REPAIR SERVICER: Dr. Trey Lundy. HISTORY: Briefly, the patient is a 71-year-old with a past medical history of hyperlipidemia, predia betes, who presented to the emergency room with complaints of left hip pain, difficulty walking. She had a mechanical fall and developed acute left-sided hip pain, was able to ambulate. She was admitt ed. She had surgery. The plan is for her to go to a correction facility for rehabilitation and strengthening. HOSPITAL COURSE: 1. Left subcapital hip fracture. She is status post left total hip arthroplasty postop day #3. The drain is out. Instructions on her weightbearing have been placed on her inner agency form. 2. Acute pain. She should get premedicated prior to getting out of bed. 3. Anemia. Her hemoglobin is 8.3. It has slightly trended down. Will have this monitored at the [facility]. 4. Gait instability. PT and OT. 5. Hyperlipidemia, on statin. 6. Insomnia, on melatonin. 7. Prediabetes. Further follow up with her PCP. 8. Constipation. Add a bowel protocol. 9. Calcified uterine fibroid. This is not bothering her. It was an incidental finding. PENDING LABS: Specimen from her hip joint is pending. DISCHARGE CONDITION: Stable. Blood pressure is 100/64, heart rate is 77, respiratory rate is 16, O2 sats on 2 L are 87%, temperature is 37.4 Celsius. MEDICATIONS AT DISCHARGE: Please see the EMR. DISCHARGE INSTRUCTIONS: 1. To make an appointment to follow up with Dr. Lundy for staple removal. 2. To stay on the Coumadin for the next 4 weeks. 3. Instructions for physical therapy have been written out. 4. Ice to her left hip as needed. Greater than 30 minutes discharging and coordinating the patient's care. /[id number]/MODL
[2017-10-08 14:03] VITALS: BP 126/90; PULSE 111; TEMP 98.2; O2SAT 92
--- NOTE | 2017-10-08 15:55 | ASDISCHSUM ---
Discharge Information Plan Status:SNF Medically Cleared to Leave: Discharge Date:10/08/2017 03:06 PM CM D/C Disposition:Long-Term Facility ADT D/C Disposition:Long-Term Facility Projected Discharge Date:10/07/2017 11:00 AM Transportation at D/C:Wheelchair Van Discharge Delay Reason: Follow-Up Date:10/07/2017 11:00 AM Discharge Slot: Final Diagnosis: Placement Information Referral Type:*Group Home/SNF Referral ID:[id number] Provider Name:[facility] Address 1:[address] Phone Number: Address 2: Fax Number: [facility]:[place] Selection Factors: State:[place] Patient Contact Information Contact Name:PATIENCE Relationship: Address:[address] City:[place] Alternate Phone: State/Zip Code:[place] [address] Email: Financial Information Financial Class:Medicare Primary Plan Desc:MEDICARE INPATIENT Primary Plan Number:[id number] Secondary Plan Desc:[facility] INDEMNITY Secondary Plan Number:[id number] Assessment Information [facility] CM Progress Note CM Note CM Note Notes: Reviewed patient's chart. Patient admitted s/p fall with Left Hip Fx. Patient lives at home with . She is scheduled for surgery this afternoon. Will await therapy evals post surgery. Current D/C Plan: To Be Determined at this time. Case Management will follow-up post surgery. Date Signed: 10/05/2017 10:05 AM Electronically Signed By:Kyung Arellano RN BC CM Progress Note CM Note CM Note Notes: PT/OT recommending SNF. Spoke with pt who is requesting [facility] as she lives near there and it will be the easiest for her to visit her. Referral and PASRR sent. Date Signed: 10/06/2017 02:23 PM Electronically Signed By:JOHANNA Goldman [facility] CM Progress Note CM Note CM Note Notes: Pt medically stable for d/c to [facility]. Alexx with BM scheduled a wc transport for 1500. Orders sent in [employer]. STEPHAN Turner called report. Date Signed: 10/08/2017 03:54 PM Electronically Signed By:JOHANNA Chakraborty Intervention Information Intervention Type:*IM-Signed Date of Service:10/08/2017 12:45 PM Patient Type:Inpatient Staff Member:Heather Becker Hours: Discipline: Severity: Comment:
[2017-10-08] MEDS ORDERED: WARFARIN SODIUM 2.5 MG TAB PO ONE (16:00)
== END 2017-10-08 15:06 | DRG 470 ==
LOC: F3N 23:52
PROVIDERS: ADMIT Family Medicine; ATTEND Hospitalist
PROC: 0SR90JA Replacement of Right Hip Joint with Synthetic Substitute, Uncemented, Open Approach (ICD-10-PCS; principal; 2017-10-04)
DX: S72.011A Unspecified intracapsular fracture of right femur, initial encounter for closed fracture (principal); W19.XXXA Unspecified fall, initial encounter; D64.9 Anemia, unspecified; E78.5 Hyperlipidemia, unspecified; R73.03 Prediabetes; G47.00 Insomnia, unspecified; K59.00 Constipation, unspecified; R26.9 Unspecified abnormalities of gait and mobility; M81.0 Age-related osteoporosis without current pathological fracture
CPT/HCPCS: 97110-GP; 97116-GP; 97161-GP; 97165-GO; 97535-GO; C1713; G8978-GP-CL; G8979-GP-CJ; G8987-GO-CL; G8988-GO-CJ; J0690; J1100; J2405; J2704; J2710; J3010

== ENCOUNTER → 2017-12-05 | Outpatient (CLI) | payer OTHER | LOC: FIMAGING 18:09 | PROVIDERS: ATTEND Internal Medicine | DX: J40 Bronchitis, not specified as acute or chronic (principal) | CPT/HCPCS: 86694-90; 86765-90; G0472 ==

== ENCOUNTER → 2017-12-15 | Outpatient (CLI) | payer OTHER | LOC: FIMAGING 15:14 | PROVIDERS: ATTEND Internal Medicine | DX: Z12.31 Encounter for screening mammogram for malignant neoplasm of breast (principal) ==

== ENCOUNTER → 2018-05-02 | Outpatient (CLI) | payer OTHER | LOC: BHFA 13:00 | PROVIDERS: ATTEND Internal Medicine Cardiovascular Disease | DX: R42 Dizziness and giddiness (principal); R94.31 Abnormal electrocardiogram [ECG] [EKG] ==

== ENCOUNTER → 2018-05-23 | Outpatient (CLI) | payer OTHER ==
[~2018-05-23] MED LIST: GADOBUTROL 10 ML VIAL IVP ONE
== END ==
LOC: FIMAGING 12:18
PROVIDERS: ATTEND Physical Medicine & Rehabilitation
DX: M54.2 Cervicalgia (principal); R42 Dizziness and giddiness
CPT/HCPCS: 70544; 70549; A9585; 82565-PO

== ENCOUNTER → 2018-05-27 | Outpatient (CLI) | payer OTHER | LOC: FIMAGING 14:34 | PROVIDERS: ATTEND Physical Medicine & Rehabilitation | DX: Z13.820 Encounter for screening for osteoporosis (principal); M85.89 Other specified disorders of bone density and structure, multiple sites; Z78.0 Asymptomatic menopausal state; Z96.642 Presence of left artificial hip joint ==